=== PATIENT | female | born 1945 | race Caucasian/White ===

== ENCOUNTER → 2017-03-17 | Outpatient (REF) | payer MEDICARE | LOC: M LAB REF 11:00 | DX: E04.1 Nontoxic single thyroid nodule (principal) | CPT/HCPCS: 88173 ==

== ENCOUNTER 2020-07-11 13:50 | Outpatient (CLI) | payer MEDICARE ==
[~2020-07-11] VITALS: Ht 154.9 cm; Wt 56.3 kg
[2020-07-11 13:50] VITALS: BP 121/60
[2020-07-11] MEDS ORDERED: ZOLEDRONIC ACID 5 MG in IV 1 EA IV ONE (14:00)
[2020-07-11] MEDS ORDERED: GABA800T4 PO (14:18)
[2020-07-11] MEDS ORDERED: TRAM1CAP15 PO (14:19)
[2020-07-11] MEDS ORDERED: PANT40TA29 PO (14:20)
[2020-07-11] MEDS ORDERED: AMLO25TA PO (14:21)
[2020-07-11 14:45] VITALS: BP 114/64
== END 2020-07-11 14:45 | disposition home or self-care (01) ==
LOC: M INFU 13:50
PROVIDERS: ATTEND Internal Medicine Endocrinology, Diabetes & Metabolism
DX: M81.0 Age-related osteoporosis without current pathological fracture (principal); Z88.0 Allergy status to penicillin; Z88.6 Allergy status to analgesic agent
CPT/HCPCS: 96365; J3489

== ENCOUNTER 2021-09-24 12:13 | Day surgery (SDC) | payer MEDICARE ==
[~2021-09-24] VITALS: Ht 154.9 cm; Wt 50.9 kg
[~2021-09-24 12:13] MED LIST: AMLO1TAB24 PO; AMLO25TA PO; CONS10SO3; CVS-161 PO; GABA800T4 PO; HYDR12CA; K 10100T PO; NS 1,000 ML IV ONE; PANT40TA29 PO; TIZA2TA; TRAM1CAP15 PO; VITA100093 PO; VITMTA PO
[2021-09-24] MEDS ORDERED: fentaNYL 100 MCG/2 ML INJECTION As Ordered ONE (14:05)
[2021-09-24] MEDS ORDERED: LIDOCAINE 2% 100MG/5ML SDV (FOR ANES.) As Ordered ONE (14:41)
[2021-09-24] MEDS ORDERED: propofoL 200 MG/20 ML VIAL As Ordered ONE (14:41)
[2021-09-24 14:55] VITALS: BP 126/59
== END 2021-09-24 15:06 | disposition home or self-care (01) ==
LOC: M OPP 12:13
PROVIDERS: ATTEND Internal Medicine Gastroenterology
DX: D12.2 Benign neoplasm of ascending colon (principal); D12.5 Benign neoplasm of sigmoid colon; K64.8 Other hemorrhoids; K57.30 Diverticulosis of large intestine without perforation or abscess without bleeding; K59.00 Constipation, unspecified; K21.00 Gastro-esophageal reflux disease with esophagitis, without bleeding; I48.91 Unspecified atrial fibrillation; I10 Essential (primary) hypertension; Z79.899 Other long term (current) drug therapy; Z85.9 Personal history of malignant neoplasm, unspecified; Z80.3 Family history of malignant neoplasm of breast
CPT/HCPCS: 43239; 43450; 45385; 88305; J3010